=== PATIENT | female | born 1965 | race Caucasian/White ===

== ENCOUNTER 2017-09-18 12:39 | Emergency (ER) | payer BC ==
[2017-09-18 14:05] VITALS: BP 144/79
--- NOTE | 2017-09-18 15:15 | UC ---
Throat Pain/Nasal Scotty HPI - HPI Summary HPI Summary: patient has had increase sinus pain and pressure for the past two weeks, has been using the neti pot but it is not helping anymore, ear pain and pressure as well, has had chills unknown fever - History of Current Complaint Hx Obtained From: Patient Hx Last Menstrual Period: unknown ?: No Onset/Duration: Sudden Onset, Lasting Days Severity: Mild Pain Intensity: 0 Associated Signs & Symptoms: Positive: Dysphagia, Sinus Discomfort, Nasal Discharge <Taylor Mohr - Last Filed: 09/18/17 15:13> <Ramona Miranda - Last Filed: 09/19/17 07:45> - History of Current Complaint Chief Complaint: UCGeneralIllness Stated Complaint: SINUS COMPLAINT Time Seen by Provider: 09/18/17 14:26 - Allergies/Home Medications Allergies/Adverse Reactions: Allergies Allergy/AdvReac Type Severity Reaction Status Date / Time atropine [From ] Allergy Hives Verified 09/18/17 14:02 cephalexin [From Keflex] Allergy Hives Verified 09/18/17 14:02 hyoscyamine [From ] Allergy Hives Verified 09/18/17 14:02 phenobarbital [From ] Allergy Hives Verified 09/18/17 14:02 scopolamine [From ] Allergy Hives Verified 09/18/17 14:02 Home Medications: Home Medications Citalopram TAB* [CeleXA TAB*] 20 mg PO DAILY 09/18/17 [History Confirmed ] PMH/Surg Hx/FS Hx/Imm Hx Previously Healthy: Yes - Surgical History Surgical History: Yes Surgery Procedure, Year, and Place: sinus surgery. shoulder surgery - Family History Known Family History: Positive: Cardiac Disease, Hypertension - Social History Alcohol Use: Occasionally Substance Use Type: None Smoking Status (MU): Former Smoker Type: Cigarettes <Taylor Mohr - Last Filed: 09/18/17 15:13> Review of Systems Constitutional: Negative Skin: Negative Eyes: Negative ENT: Sore Throat, Ear Ache, Nasal Discharge Respiratory: Negative Cardiovascular: Negative Gastrointestinal: Negative Genitourinary: Negative Motor: Negative Neurovascular: Negative Musculoskeletal: Negative Neurological: Headache Psychological: Negative Is Patient Immunocompromised?: No All Other Systems Reviewed And Are Negative: Yes <Taylor Mohr - Last Filed: 09/18/17 15:13> Physical Exam Triage Information Reviewed: Yes Appearance: Well-Nourished, Ill-Appearing, Pain Distress Vital Signs: Initial Vital Signs Temp 99.1 F 09/18/17 13:59 Pulse 78 09/18/17 13:59 Resp 16 09/18/17 13:59 BP 144/79 09/18/17 13:59 Pulse Ox 100 09/18/17 13:59 Vital Signs Reviewed: Yes Eye Exam: Normal ENT: Positive: Pharyngeal erythema, Nasal congestion, Nasal drainage, TM bulging , TM dull Dental Exam: Normal Neck exam: Normal Neck: Positive: Supple, Nontender, No Lymphadenopathy Respiratory Exam: Normal Respiratory: Positive: Chest non-tender, Lungs clear, Normal breath sounds Cardiovascular Exam: Normal Cardiovascular: Positive: RRR, No Murmur, Pulses Normal Abdominal Exam: Normal Abdomen Description: Positive: Nontender, No Organomegaly, Soft Bowel Sounds: Positive: Present Musculoskeletal Exam: Normal Neurological Exam: Normal Psychological Exam: Normal Skin Exam: Normal <Taylor Mohr - Last Filed: 09/18/17 15:13> Vital Signs: Initial Vital Signs Temp 99.1 F 09/18/17 13:59 Pulse 78 09/18/17 13:59 Resp 16 09/18/17 13:59 BP 144/79 09/18/17 13:59 Pulse Ox 100 09/18/17 13:59 <Ramona Miranda - Last Filed: 09/19/17 07:45> Throat Pain/Nasal Course/Dx - Course Course Of Treatment: hx obtained, exam performed ,meds reviewed, treated for sinusitis - Differential Dx/Diagnosis Differential Diagnosis/HQI/PQRI: Otitis Media, Pharyngitis, Sinusitis Provider Diagnoses: sinusitis <Taylor Mohr - Last Filed: 09/18/17 15:13> Discharge - Sign-Out/Discharge Documenting (check all that apply): Discharge - Billing Disposition and Condition Condition: STABLE Disposition: HOME <Taylor Mohr - Last Filed: 09/18/17 15:13> - Billing Disposition and Condition Condition: STABLE Disposition: HOME <Ramona Miranda - Last Filed: 09/19/17 07:45> - Discharge Plan Condition: Stable Disposition: HOME Prescriptions: Azithromyxin JOSÉ (NF) [Z-José (Zithromax) 250 mg tabs #6] 2 tab PO .TODAY, THEN 1 DAILY #6 tab Patient Education Materials: Sinusitis (ED) Referrals: Jaleesa Alvarado [Primary Care Provider] - Additional Instructions: 1. Increase fluid intake. 2. Continue neti pot 3. Take the medication as prescribed. Attestation Statement User Type: Provider - I was available for consult. This patient was seen by the RINKU. The patient was not presented to, seen by, or examined by me. -Ling <Ramona Miranda - Last Filed: 09/19/17 07:45>
== END 2017-09-18 15:16 | disposition home or self-care (01) ==
LOC: UCCORT 12:39
DX: J32.9 Chronic sinusitis, unspecified (principal); Z87.891 Personal history of nicotine dependence; Z88.8 Allergy status to other drugs, medicaments and biological substances
CPT/HCPCS: 99202; G0463

== ENCOUNTER 2018-02-26 10:30 | Emergency (ER) | payer BC ==
--- NOTE | 2018-02-26 12:12 | UC ---
Throat Pain/Nasal Scotty HPI - History of Current Complaint Stated Complaint: SINUSES Time Seen by Provider: 02/26/18 12:12 Hx Last Menstrual Period: unknown - Allergies/Home Medications Allergies/Adverse Reactions: Allergies Allergy/AdvReac Type Severity Reaction Status Date / Time atropine [From ] Allergy Hives Verified 09/18/17 14:02 cephalexin [From Keflex] Allergy Hives Verified 09/18/17 14:02 hyoscyamine [From ] Allergy Hives Verified 09/18/17 14:02 phenobarbital [From ] Allergy Hives Verified 09/18/17 14:02 scopolamine [From ] Allergy Hives Verified 09/18/17 14:02 PMH/Surg Hx/FS Hx/Imm Hx - Surgical History Surgical History: Yes Surgery Procedure, Year, and Place: sinus surgery. shoulder surgery - Family History Known Family History: Positive: Cardiac Disease, Hypertension - Social History Alcohol Use: Occasionally Substance Use Type: None Smoking Status (MU): Former Smoker Type: Cigarettes Discharge - Discharge Plan Referrals: Jaleesa Alvarado [Primary Care Provider] -
--- NOTE | 2018-02-26 12:17 | UC ---
Throat Pain/Nasal Scotty HPI - HPI Summary HPI Summary: 2 weeks progressive sinus pressure, pnd ear fullnes no fever, chills + fatigue no sob, cough + sick contact with same Pt states h./o similar. little relief with OTC meds - h/o sinus surgery imprves with shower Pt's medications reviewed this visit - History of Current Complaint Stated Complaint: SINUSES Time Seen by Provider: 02/26/18 12:12 Hx Obtained From: Patient Hx Last Menstrual Period: unknown Onset/Duration: Gradual Onset - Allergies/Home Medications Allergies/Adverse Reactions: Allergies Allergy/AdvReac Type Severity Reaction Status Date / Time atropine [From ] Allergy Hives Verified 02/26/18 12:28 cephalexin [From Keflex] Allergy Hives Verified 02/26/18 12:28 hyoscyamine [From ] Allergy Hives Verified 02/26/18 12:28 phenobarbital [From ] Allergy Hives Verified 02/26/18 12:28 scopolamine [From ] Allergy Hives Verified 02/26/18 12:28 PMH/Surg Hx/FS Hx/Imm Hx Previously Healthy: Yes - Surgical History Surgical History: Yes Surgery Procedure, Year, and Place: sinus surgery. shoulder surgery - Family History Known Family History: Positive: Cardiac Disease, Hypertension - Social History Occupation: Employed Full-time Lives: With Family Alcohol Use: Occasionally Substance Use Type: None Smoking Status (MU): Former Smoker Type: Cigarettes Review of Systems Constitutional: Fatigue ENT: Sore Throat, Sinus Congestion, Sinus Pain/Tenderness All Other Systems Reviewed And Are Negative: Yes Physical Exam - Summary Physical Exam Summary: Vital Signs Reviewed: Yes A+Ox3, no distress Eyes: Conjunctiva Clear, FREDDY. EOM intact and full ENT: Hearing grossly normal TM x 2 clear, turbinates inflamed and boggy, + PND , + TTP sinusis frontal and max, R>L mmoist, uvula midline, no exudate, no erythema Neck: Positive: Supple Respiratory: Positive: No respiratory distress, No accessory muscle use + CTA throughout no w/r Cardiovascular: RRR nl s1, s2 no m/r CBT <2 sec abd soft + BS nt/nd no guarding, no distension Musculoskeletal Exam: OTTO x 4 without difficulty Strength Intact, ROM Intact Neurological: Positive: Alert, + sensation throughout Psychological: Positive: Normal Response To Family Skin: Positive: no rash, no ecchymosis Triage Information Reviewed: Yes Throat Pain/Nasal Course/Dx - Course Course Of Treatment: 2 weeks progressive sinus pressure, pnd and discomfort. VSS. exam c/w sinusitis. abx. hydrate. motrin/apap. flonase. secretion precaution. return precaution - Differential Dx/Diagnosis Provider Diagnoses: sinusitis Discharge - Sign-Out/Discharge Documenting (check all that apply): Patient Departure All imaging exams completed and their final reports reviewed: No Studies - Discharge Plan Condition: Stable Disposition: HOME Prescriptions: Fluticasone NASAL SPRAY 50MCG* [Flonase NASAL SPRAY 50MCG*] 2 spray BOTH NARES DAILY #1 btl Sulfamethox/Trimethoprim DS* [Bactrim DS 800/160 TAB*] 1 tab PO BID #20 tab Patient Education Materials: Rhinosinusitis (ED) Referrals: Jaleesa Alvarado [Primary Care Provider] - Additional Instructions: - Stay well hydrated. Drink plenty of non-alcoholic, non-caffinated beverages. - Alternate ibuprofen (Advil, Motrin) 600mg and Tylenol every 3 hours for pain or fever. Take with food. Do NOT take for more than 4-5 days. - These infections are spread by secretions - do NOT share eating or drinking utensils - clean items you share with other people such as cell phones, computer mouse, TV remote, computer tablets,etc. Once you have been antibiotics for 2 days, change your toothbrush and your pillowcase. - get plenty of restful sleep -use nasal spray as prescribed - humidify the air in the room where you sleep - boil water, run a hot steam shower, vaporizer, cups of water by heat register - okay to take over the counter decongestant and cough medication - contact your doctor or return with questions or concerns - Billing Disposition and Condition Condition: STABLE Disposition: Home
[2018-02-26 12:33] VITALS: BP 148/71
== END 2018-02-26 12:36 | disposition home or self-care (01) ==
LOC: UCCORT 10:30
DX: J32.9 Chronic sinusitis, unspecified (principal); Z88.1 Allergy status to other antibiotic agents; Z88.8 Allergy status to other drugs, medicaments and biological substances; Z87.891 Personal history of nicotine dependence
CPT/HCPCS: 99212; G0463